=== PATIENT | female | born 1970 | race Caucasian/White ===

== ENCOUNTER 2021-04-28 08:26 | Day surgery (SDC) | payer OTHER, SELFPAY ==
[~2021-04-28] VITALS: Ht 154.9 cm; Wt 83.9 kg
[~2021-04-28 08:26] MED LIST: CEFAZOLIN SOD 1 GM in D5W 50 ML IV ONE
[2021-04-28] MEDS ORDERED: BUPIVACAINE /PF 0.25% 30 ML VIAL INJ ONE (12:15)
[2021-04-28] MEDS ORDERED: ONDANSETRON HCL 4 MG/2 ML VIAL IVP ONE (12:15)
[2021-04-28] MEDS ORDERED: NS IRRIG SOLN 1000 ML IR ONE (12:15)
[2021-04-28] MEDS ORDERED: PROPOFOL 200MG/ 20ML VIAL (DIPRIVAN) IV ONE (12:15)
[2021-04-28] MEDS ORDERED: MIDAZOLAM HCL 5 MG/5 ML VIAL IVP ONE (12:15)
[2021-04-28] MEDS ORDERED: LR 1,000 ML IV.SOLN IV ONE (12:15)
[2021-04-28] MEDS ORDERED: SEVOFLURANE 15 MIN GAS INH ONE (12:15)
[2021-04-28] MEDS ORDERED: DEXAMETHASONE SOD PHOSPHATE 4 MG/ML VIAL IVP ONE (12:15)
[2021-04-28] MEDS ORDERED: LIDOCAINE 1% 10 MG/ML, 20 ML MDV IM ONE (12:15)
[2021-04-28] MEDS ORDERED: fentaNYL CITRATE/PF 100 MCG/2 ML AMP IVP ONE (12:15)
[2021-04-28] MEDS ORDERED: METOCLOPRAMIDE HCL 10 MG/2 ML VIAL IVP PRN (13:00)
[2021-04-28] MEDS ORDERED: MIDAZOLAM HCL 2 MG/2 ML VIAL (VERSED) IVP PRN (13:00)
[2021-04-28] MEDS ORDERED: LABETALOL 100 MG/ 20ML VIAL IVP PRN (13:00)
[2021-04-28] MEDS ORDERED: hydrALAZINE HCL 20 MG/ML VIAL IVP PRN (13:00)
[2021-04-28] MEDS ORDERED: MEPERIDINE HCL/PF 25 MG/ML DISP.SYRIN IVP PRN (13:00)
[2021-04-28] MEDS ORDERED: LR 1,000 ML IV SCH (13:00)
[2021-04-28] MEDS ORDERED: ACETAMINOPHEN I.V. 1000 MG 100 ML IV ONE (13:00)
[2021-04-28] MEDS ORDERED: ONDANSETRON HCL 4 MG/2 ML VIAL IVP PRN (13:00)
[2021-04-28] MEDS ORDERED: HYDROmorphone 1 MG/ML INJ. CARTRIDGE IVP PRN ×2 (13:00)
[2021-04-28] MEDS ORDERED: HYDROcodone/ACETAMIN 5-325 MG TAB (NORCO/ VICODIN) PO PRN ×2 (13:30)
[2021-04-28] MEDS ORDERED: D5/0.45 NS 1,000 ML IV SCH (13:30)
[2021-04-28 14:31] VITALS: BP_SYST 123
[2021-04-28] MEDS ORDERED: ONDANSETRON HCL 4 MG/2 ML VIAL ONE (14:45)
== END 2021-04-28 15:40 | disposition home or self-care (01) ==
LOC: SDS 08:26 → SMU 08:27 → EDSTATUS 12:20 → SDS 15:40
PROVIDERS: ATTEND Colon & Rectal Surgery
DX: D05.11 Intraductal carcinoma in situ of right breast (principal); I10 Essential (primary) hypertension; Z79.899 Other long term (current) drug therapy; Z90.49 Acquired absence of other specified parts of digestive tract; Z20.822 Contact with and (suspected) exposure to COVID-19
CPT/HCPCS: 19120; 19281; 88305; A4648; J0690; J1100; J2001; J2250; J2405; J2704; J3010; J3490; J7060; J7120; U0003; J0131